=== PATIENT | female | born 1975 | race Asian ===

== ENCOUNTER 2021-04-16 09:09 | Outpatient (CLI) | payer BC | END 2021-04-16 09:10 | disposition home or self-care (01) | LOC: CSHULT 09:09 | PROVIDERS: ATTEND Family Medicine | DX: K82.4 Cholesterolosis of gallbladder (principal) | CPT/HCPCS: 76705 ==

== ENCOUNTER 2024-08-15 08:33 | Outpatient (CLI) | payer BC | END 2024-08-15 08:34 | disposition home or self-care (01) | LOC: CSHMAMMO 08:33 | PROVIDERS: ATTEND Obstetrics & Gynecology | DX: R92.8 Other abnormal and inconclusive findings on diagnostic imaging of breast (principal) | CPT/HCPCS: G0279 ==